=== PATIENT | male | born 1970 | race Caucasian/White ===

== ENCOUNTER 2017-01-20 17:49 | Emergency (ER) | payer OTHER ==
--- NOTE | 2017-01-20 18:51 | DIAGNOSTIC IMAGING REPORT ---
PROCEDURE: XR FINGER - LEFT (third finger). INDICATION: Possible would foreign body. TECHNIQUE: Three views. COMPARISON: None. FINDINGS: Mild to moderate soft tissue swelling. Osseous structures and joint spaces are normal. No evidence of radiopaque or radiolucent foreign body. IMPRESSION: 1. Moderate soft tissue swelling. 2. Otherwise negative left third finger.
--- NOTE | 2017-01-20 19:50 | ED ORDER SUMMARY ---
..... Patient: OLAMIDE JOYCE OrderSheet [facility] VisitID: [id number] [place] [address] 46y, M Registration Date/Time: 01/20/2017 ORDER SHEET Weight: 97.5 kg (stated) Allergies: Unknown heart medication GENERAL ORDERS: Finger Left (3rd) Urgent (18:18 01/20/2017 Nancy Garcia) (Ack 18:20 Clifford) (18:30 Maurilio) MEDICATION ORDERS: Lidocaine Injection 2 % (soln) (NOW) (19:02 01/20/2017 Nancy Garcia) (19:52 Brooke Ochoa) IV FLUIDS: ORDER SHEET NOTES: [Electronically signed by Sami Rodriguez Dr. (20:07 01/20/2017)] [Electronically signed by Anisa Pascual R.N. (23:10 01/20/2017)] [Electronically locked/signed by Anisa Pascula R.N. (23:10 01/20/2017)]
--- NOTE | 2017-01-20 19:50 | ED ORDER SUMMARY ---
..... Patient: OLAMIDE JOYCE OrderSheet [facility] VisitID: [id number] [place] [address] 46y, M Registration Date/Time: 01/20/2017 ORDER SHEET Weight: 97.5 kg (stated) Allergies: Unknown heart medication GENERAL ORDERS: Finger Left (3rd) Urgent (18:18 01/20/2017 Nancy Garcia) (Ack 18:20 Clifford) (18:30 Maurilio) MEDICATION ORDERS: Lidocaine Injection 2 % (soln) (NOW) (19:02 01/20/2017 Nancy Garcia) (19:52 Brooke Ochoa) IV FLUIDS: ORDER SHEET NOTES: [Electronically signed by Sami Rodriguez Dr. (20:07 01/20/2017)] [Electronically signed by Anisa Pascual R.N. (23:10 01/20/2017)] [Electronically locked/signed by Anisa Pascual R.N. (23:10 01/20/2017)]
--- NOTE | 2017-01-20 19:50 | ED NURSING NOTES ---
Clinical Report - Nurses [facility] [address] [place] [address] 01/20/2017 17:51 Patient: OLAMIDE JOYCE TRIAGE Triage time 17:57 Jan 20 2017. Acuity: LEVEL 4. Chief Complaint: FB in L middle finger. Alert. No acute distress. SEPSIS SCREEN: Sepsis Screen: negative. Negative (no infection suspected/documented). --18:02 Anisa Pascual R.N. 17:57 01/20/17. BP: 168/106. HR: 104. RR: 16. O2 saturation: 97%. Temp: 98.4 F. Pain level now: 12/07. --18:02 Anisa Pascual R.N. Weight: 97.5 kg stated. Height/Length: 68 inches Per Patient. BMI: 32.7. --18:02 Anisa Pascual R.N. Medications None. --17:59 Anisa Pascual R.N. Allergies Unknown heart medication. --17:59 Anisa Pascual R.N. History Arrived by private vehicle. Historian: patient. Location - left middle finger. Onset. (about 2 days ago). It is described as painful. 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 PAST MEDICAL HX: Immunizations: up-to-date. SOCIAL HX: Current every day heavy tobacco smoker (cigarette)- less than 1 pack per day. History of occasional drug use: marijuana. No alcohol use. No infectious disease exposure. SELF HARM ASSESSMENT: A self harm assessment was performed. The patient answered "no" to the question "Do you have thoughts of harming or killing yourself?". FALL RISK ASSESSMENT: Fall risk assessment completed. No fall risk identified. NUTRITIONAL RISK ASSESSMENT: The nutritional risk assessment revealed no deficiencies. FUNCTIONAL ASSESSMENT: Functional assessment: no impairments noted. LEARNING NEEDS ASSESSMENT: The learning needs assessment revealed no barriers. ABUSE ASSESSMENT: Abuse assessment: The patient was asked "Do you feel safe in your home?". SKIN INTEGRITY ASSESSMENT: Skin integrity risk assessment completed. No skin integrity risk identified. --18:02 Anisa Pascual R.N. PROBLEMS: Laceration. Tetanus Status. Bacterial meningitis. Osteomyelitis. Myocardial Infarction. Eye implant. Schizophrenia. Hypertension. --17:59 Anisa Pascual R.N. ADDITIONAL SURGERIES: Appendectomy. Eye implant. Rhinoplasty. --17:59 Anisa Pascual R.N. Interventions ID band on patient. --18:02 Anisa Pascual R.N. PHYSICAL ASSESSMENT GENERAL / NEURO / PSYCH: Alert. The patient does not appear to be in acute distress. Oriented X 4. HEENT: Mucous membranes are pink. RESPIRATORY: Respirations not labored. CVS: Capillary refill less than 2 seconds. GI / : Abdomen nontender. SKIN: Skin is warm and dry. --18:02 Anisa Pascual R.N. NURSING PROGRESS NOTES Head of bed elevated. Patient identifiers checked. Call light placed in reach. Side rails up x 1. Bed placed in lowest position. Brakes of bed on. --18:03 Anisa Pascual R.N. 19:48. Applied dressing consisting of Band-Aid, following the application of antibiotic ointment (bacitracin). --19:48 Maria Elena Mcdoanld, CHRISTA Tech1 19:52 01/20/2017 Lidocaine Injection Injectable. Allergies verified and confirmed 5 rights. --19:52 Anisa Pascual R.N. DISPOSITION / DISCHARGE Departure time: 19:58 Jan 20 2017. Condition at departure: improved. No learning barriers present. Discharge instructions provided and reviewed with the patient. Reviewed referral to a primary care physician. Patient verbalized understanding. Written instructions provided in [employer]. The patient was discharged home. He left the Emergency Department ambulatory and via private vehicle. Patient driving. FALL RISK ASSESSMENT: Fall risk assessment completed. No fall risk identified. --19:58 Anisa Pascual R.N. 19:57 01/20/17. BP: 170/131. HR: 98. RR: 16. O2 saturation: 100%. Pain level now: 0/10. --19:58 Anisa Pascual R.N. Locked/Released at 01/20/2017 23:10 by Anisa Pascual R.N.
--- NOTE | 2017-01-20 19:50 | ED CLINICAL REPORT ---
Clinical Report - Physicians/Mid Levels [facility] [address] [place] [address] 01/20/2017 17:51 Patient: OLAMIDE JOYCE Time Seen: 18:03; initial patient contact. Arrived- By private vehicle. Historian- patient. HISTORY OF PRESENT ILLNESS Chief Complaint: Injury to the right middle finger. The injury happened about 2 days ago. Occurred at home. The patient sustained a puncture wound from a splinter. Patient now notes redness and swelling. Patient is experiencing mild pain. Patient denies injury to the head or neck. REVIEW OF SYSTEMS The patient sustained a laceration. Foreign body is suspected. He has had swelling. No tingling, numbness or weakness. All systems otherwise negative, except as recorded above. PAST HISTORY Laceration. Tetanus Status. Bacterial meningitis. Osteomyelitis. Myocardial Infarction. Eye implant. Schizophrenia. Hypertension. SURGERIES: Appendectomy. Eye implant. Rhinoplasty. The patient's dominant hand is the right. Tetanus immunization status is up-to-date. SOCIAL HISTORY Current every day smoker. History of drug use: marijuana. No alcohol use. ADDITIONAL NOTES The nursing notes have been reviewed. PHYSICAL EXAM Vital Signs: 01/20/2017 17:57 BP: 168/106. HR: 104. RR: 16. O2 saturation: 97%. Temp: 98.4 F. Pain level now: 3/10. Have been reviewed. Hypertensive. Tachycardic. Respiratory rate normal. Temperature normal. Oxygen saturation normal. Appearance: Alert. Oriented X3. No acute distress. Skin: Skin warm and dry. Extremities: Left middle finger: mild erythema, tenderness and swelling, single puncture wound and suspected foreign body of the volar aspect and proximal phalanx. Neurovascular intact distally. No limitation in movement. No wrist injury. Hand and wrist exam otherwise negative. Neuro, Vascular and Tendons: Vascular status intact. Sensation intact. Motor intact. Tendon function intact. Neuro: Oriented X 3. No motor deficit. LABS, X-RAYS, AND EKG Lt UE Digits X-ray: No fracture. Normal alignment. No bony lesion, air in the soft tissue or foreign body. Soft tissue swelling. Views: AP, lateral and oblique. Technique: good. The X-rays were independently viewed by me and interpreted contemporaneously by me. Prior films were not available for comparison. PROGRESS AND PROCEDURES Digital Nerve Block - Finger: Per protocol, time-out completed immediately before the procedure. Digital nerve block performed on the left middle finger. Web space approach utilized. Landmarks identified. Skin prepped. Total volume of 4 mL 2% Lidocaine infiltrated via two punctures using a 25-gauge needle. Patient cooperative during procedure. No complications encountered. Excellent anesthesia achieved. Removal of Soft Tissue Foreign Body: Per protocol, time-out completed immediately before the procedure. The foreign body was wood. Located in the left hand and middle finger. Foreign body localized by history and exam. Prior to the procedure the risks, benefits and alternatives to the procedure were explained. Anesthesia provided by digital block. Wound prepped with chlorhexidine and sterile field employed. Wound explored. Foreign body visualized, palpated and removed using needle. Wound irrigated extensively. The foreign body removed was deep. Dressing applied. Tetanus immunization up-to-date. Warnings provided regarding redness, swelling, pain, fever, drainage, bleeding and the possibility of a retained foreign body. Disposition: Discharged home in good and improved condition. Condition: good. CLINICAL IMPRESSION Removal of deep wooden soft tissue foreign body to the left middle finger. Puncture wound present. No laceration, infection or left fingernail injury. INSTRUCTIONS Protect wound and keep wound area clean. Change dressing twice daily. Soak in warm water twice daily. Apply bacitracin twice daily. Your Current Medications: CONTINUE TAKING THE FOLLOWING MEDICATIONS: None*. Follow-up: Follow up with your doctor in about two days if not better. Screening today revealed the patient's blood pressure to be in the hypertensive range. The patient should follow up with a primary care provider for blood pressure management. (Electronically signed by Sami Rodriguez Dr. 01/20/2017 20:07)
--- NOTE | 2017-01-20 19:50 | ED NURSING NOTES ---
Clinical Report - Nurses [facility] [address] [place] [address] 01/20/2017 17:51 Patient: OLAMIDE JOYCE TRIAGE Triage time 17:57 Jan 20 2017. Acuity: LEVEL 4. Chief Complaint: FB in L middle finger. Alert. No acute distress. SEPSIS SCREEN: Sepsis Screen: negative. Negative (no infection suspected/documented). --18:02 Anisa Pascual R.N. 17:57 01/20/17. BP: 168/106. HR: 104. RR: 16. O2 saturation: 97%. Temp: 98.4 F. Pain level now: 12/07. --18:02 Anisa Pascual R.N. Weight: 97.5 kg stated. Height/Length: 68 inches Per Patient. BMI: 32.7. --18:02 Anisa Pascual R.N. Medications None. --17:59 Anisa Pascual R.N. Allergies Unknown heart medication. --17:59 Anisa Pascual R.N. History Arrived by private vehicle. Historian: patient. Location - left middle finger. Onset. (about 2 days ago). It is described as painful. Treatment HOME HEALTH AID: None. PAST MEDICAL HX: Immunizations: up-to-date. SOCIAL HX: Current every day heavy tobacco smoker (cigarette)- less than 1 pack per day. History of occasional drug use: marijuana. No alcohol use. No infectious disease exposure. SELF HARM ASSESSMENT: A self harm assessment was performed. The patient answered "no" to the question "Do you have thoughts of harming or killing yourself?". FALL RISK ASSESSMENT: Fall risk assessment completed. No fall risk identified. NUTRITIONAL RISK ASSESSMENT: The nutritional risk assessment revealed no deficiencies. FUNCTIONAL ASSESSMENT: Functional assessment: no impairments noted. LEARNING NEEDS ASSESSMENT: The learning needs assessment revealed no barriers. ABUSE ASSESSMENT: Abuse assessment: The patient was asked "Do you feel safe in your home?". SKIN INTEGRITY ASSESSMENT: Skin integrity risk assessment completed. No skin integrity risk identified. --18:02 Anisa Pascual R.N. PROBLEMS: Laceration. Tetanus Status. Bacterial meningitis. Osteomyelitis. Myocardial Infarction. Eye implant. Schizophrenia. Hypertension. --17:59 Anisa Pascual R.N. ADDITIONAL SURGERIES: Appendectomy. Eye implant. Rhinoplasty. --17:59 Anisa Pascual R.N. Interventions ID band on patient. --18:02 Anisa Pascual R.N. PHYSICAL ASSESSMENT GENERAL / NEURO / PSYCH: Alert. The patient does not appear to be in acute distress. Oriented X 4. HEENT: Mucous membranes are pink. RESPIRATORY: Respirations not labored. CVS: Capillary refill less than 2 seconds. GI / : Abdomen nontender. SKIN: Skin is warm and dry. --18:02 Anisa Pascual R.N. NURSING PROGRESS NOTES Head of bed elevated. Patient identifiers checked. Call light placed in reach. Side rails up x 1. Bed placed in lowest position. Brakes of bed on. --18:03 Anisa Pascual R.N. 19:48. Applied dressing consisting of Band-Aid, following the application of antibiotic ointment (bacitracin). --19:48 Maria Elena Mcdonald, CHRISTA Tech1 19:52 01/20/2017 Lidocaine Injection Injectable. Allergies verified and confirmed 5 rights. --19:52 Anisa Pascual R.N. DISPOSITION / DISCHARGE Departure time: 19:58 Jan 20 2017. Condition at departure: improved. No learning barriers present. Discharge instructions provided and reviewed with the patient. Reviewed referral to a primary care physician. Patient verbalized understanding. Written instructions provided in [place]. The patient was discharged home. He left the Emergency Department ambulatory and via private vehicle. Patient driving. FALL RISK ASSESSMENT: Fall risk assessment completed. No fall risk identified. --19:58 Anisa Pascual R.N. 19:57 01/20/17. BP: 170/131. HR: 98. RR: 16. O2 saturation: 100%. Pain level now: 0/10. --19:58 Anisa Pascual R.N. Locked/Released at 01/20/2017 23:10 by Anisa Pascual R.N.
--- NOTE | 2017-01-20 23:11 | ED MAR SUMMARY ---
..... Medication Administration Record [facility] [address] [place] [address] Patient: OLAMIDE JOYCE Visit ID: [id number] 46y, M Weight: 97.5 kg Height/Length: 68 in BMI: 32.7 ALLERGIES: Unknown heart medication Given 19:52 01/20/2017 Anisa Pascual R.N. Medication Administered: LIDOCAINE [INJECTION], Dose: Injectable Injection. Medication Ordered: Lidocaine Injection 2 % (soln) (NOW).
--- NOTE | 2017-01-20 23:11 | ED DISCHARGE INSTRUCTIONS ---
Patient: OLAMIDE JOYCE General Instructions [facility] VisitID: [id number] [place] [address] 46y, M Registration Date/Time: 01/20/2017 Removal of deep wooden soft tissue foreign body to the left middle finger. Puncture wound present. No laceration, infection or left fingernail injury. INSTRUCTIONS Protect wound and keep wound area clean. Change dressing twice daily. Soak in warm water twice daily. Apply bacitracin twice daily. Your Current Medications: CONTINUE TAKING THE FOLLOWING MEDICATIONS: None*. Follow-up: Follow up with your doctor in about two days if not better. Screening today revealed the patient's blood pressure to be in the hypertensive range. The patient should follow up with a primary care provider for blood pressure management. ADDITIONAL INFORMATION Foreign ObjectUnder The Skin, Removed An object has been removed from under your skin. Although care was taken to remove all particles present, there is always a chance that a small piece may have been left behind. Very small particles that remain under the skin usually cause no problem and need no further treatment. Home care The following guidelines will help you care for your wound at home: Keep the wound clean and dry. If a bandage was applied and it becomes wet or dirty, replace it. Otherwise, leave it in place for the first 24 hours, then change it once a day or as directed. Ifsutureswere used, clean the wound daily: After removing the bandage, wash the area with soap and water. After cleaning, apply a thin layer of antibiotic ointment. This will keep the wound clean and make it easier to remove the stitches. Reapply the bandage. You may shower as usual after the first 24 hours, but do not soak the area in water (no baths or swimming) until the sutures are removed. If asurgical tape closureswere used, keep the area clean and dry. If it becomes wet, blot it dry with a towel. You may use acetaminophen or ibuprofen to control pain, unless another pain medicine was prescribed.If you have chronic liver or kidney disease or ever had a stomach ulcer or GI bleeding, talk with your doctor before using these medicines. Follow-up care Most skin wounds heal within ten days. However, there is an increased risk of infection if there is any particle remaining under the skin. Therefore, check the wound daily for the signs listed below. Stitches should be removed within 714 days. If surgical tape closures were used, remove them after seven days unless told otherwise. Note:Any X-rays taken will be reviewed by a radiologist. You will be notified if there are new findings that may affect your care. When to seek medical care Get prompt medical attention if any of the following occur: Increasing pain in the wound Redness, swelling or pus coming from the wound Fever of 100.4F (38C) or higher, or as directed by your health care provider Bandage Change If the bandage becomes wet or dirty, replace it. Otherwise, leave it in place for the first 24 hours. Then once a day: After removing the bandage, wash the area with soap and water. Use a wet cotton swab to loosen and remove any blood or crust that forms on the wound. After cleaning, apply a thin layer of antibiotic ointment or cream. Reapply the bandage. You may shower as usual after the first 24 hours. If the bandage is on an arm or leg, cover it with a plastic bag rubber banded at both ends before showering. No tub baths or swimming until the bandage is removed and the wound healed (at least 7 days). You have been given the following additional information: Foreign Body, Soft Tissue (Removed) Dressing Change (Electronically signed by Sami Rodriguez Dr. 01/20/2017 20:07)
--- NOTE | 2017-01-20 23:11 | ED MED RECONCILIATION SUMMARY ---
Patient: OLAMIDE JOYCE Medication Reconciliation Report [facility] VisitID: [id number] [address] [place] [address] 46y, M Registration Date/Time: 01/20/2017 Weight: 97.5 kg Height/Length: 68 in. BMI: 32.7 ALLERGIES: Unknown heart medication The patient's Home Medications are listed below: NONE. The source(s) of the original Home Medication information: Not obtained. The following Medications were given to the patient in the Emergency Department: Lidocaine [Injection] Injection, administered: 01/20/2017 7:52:00 PM The following Medications were prescribed to the patient: None.
--- NOTE | 2017-01-20 23:11 | ED MAR SUMMARY ---
..... Medication Administration Record [facility] [address] [place] [address] Patient: OLAMIDE JOYCE Visit ID: [id number] 46y, M Weight: 97.5 kg Height/Length: 68 in BMI: 32.7 ALLERGIES: Unknown heart medication Given 19:52 01/20/2017 Anisa Pascual R.N. Medication Administered: LIDOCAINE [INJECTION], Dose: Injectable Injection. Medication Ordered: Lidocaine Injection 2 % (soln) (NOW).
--- NOTE | 2017-01-20 23:11 | ED MED RECONCILIATION SUMMARY ---
Patient: OLAMIDE JOYCE Medication Reconciliation Report [facility] VisitID: [id number] [address] [place] [address] 46y, M Registration Date/Time: 01/20/2017 Weight: 97.5 kg Height/Length: 68 in. BMI: 32.7 ALLERGIES: Unknown heart medication The patient's Home Medications are listed below: NONE. The source(s) of the original Home Medication information: Not obtained. The following Medications were given to the patient in the Emergency Department: Lidocaine [Injection] Injection, administered: 01/20/2017 7:52:00 PM The following Medications were prescribed to the patient: None.
== END 2017-01-20 19:57 | disposition home or self-care (01) ==
LOC: ED SRH 17:49
DX: S61.243A Puncture wound with foreign body of left middle finger without damage to nail, initial encounter (principal); X58.XXXA Exposure to other specified factors, initial encounter; Y93.9 Activity, unspecified; Y92.9 Unspecified place or not applicable; Y99.9 Unspecified external cause status; F17.210 Nicotine dependence, cigarettes, uncomplicated; I10 Essential (primary) hypertension